=== PATIENT | female | born 1985 | race Caucasian/White ===

== ENCOUNTER 2018-12-02 08:58 | Emergency (ER) | payer SELFPAY ==
[2018-12-02] VITALS (23 sets, daily range): BP systolic 140–172; BP diastolic 80–116; PULSE 67–104; RESP 15–26; TEMP 36.5–36.7; O2SAT 97–100
--- NOTE | 2018-12-02 09:09 | ED.GENADUL_ITS ---
Discharge Plan Disposition Patient Disposition: HOME Condition: Stable Discharge Details Chief Complaint: Dizzy/Sync Clinical Impression: Seizure, HTN (hypertension) Primary Care Provider: Keshav Dean ED Provider: Chetna Vickers Home Meds and New Rx's Prescriptions: New levetiracetam [Keppra] 500 mg tablet 500 mg PO BID Qty: 60 RF: 0 Discontinued topiramate [Topamax] 200 mg Tablet 200 mg PO BID RF: 0 Discharge Instructions Instructions: Levetiracetam (By mouth), Hypertension (ED), Recurrent Seizures in Adults (ED) Additional Instructions: Please return immediately to the emergency department if you develop any new or worsening symptoms or if you become otherwise concerned. It is extremely important that you make an appointment to be seen as soon as possible by both your primary care doctor and also by a neurologist. Referrals: Keshav Dean [Primary Care Provider] - Marry Lacey MD [ [facility] ST[facility]FF PHYSICIAN] - Discharge Data Discharge Date/Time-TO BE ENTERED AT DEPARTURE: 12/02/18 11:20 Medical Decision Making Sofía Louis is a 3-year-old woman with a history of seizure disorder prescribed Topamax but has not been taking this medication for several months who presented to the emergency department with abrupt loss of consciousness while standing in a kitchen at work this morning, no complaints at this time. On exam patient is well and nontoxic appearing. She is somewhat slow to respond to questions but has an otherwise normal neurologic exam. Benign cardiopulmonary exam. Episode most consistent with seizure, possible metabolic/lyte derangement, possible head trauma. Do not suspect syncopal episode/cardiopulmonary etiology, sepsis, meningitis, other acute emergent life- threatening process. Plan for screening EKG, screening labs, CT head. We will continue to monitor. Patient's mother now present at bedside. Patient refusing CT head, she states that she has no headache, now feels very well and at baseline. Has no complaints. Patient's mother confirms that patient is at baseline. Patient is now responding in normal fashion, continues to have a benign exam. Given return to baseline mental status, normal exam, patient asymptomatic plan to discontinue CT head. Labs nondiagnostic, test negative per nursing, patient reports that she is currently having her period. I discussed patient with Dr. Van Straten, who recommended patient either restart Topamax at 50 mg twice daily or start Keppra at 500 mg twice daily if she has not previously been on this medication before. Patient states that she has not been on Keppra in the past, and she elects to begin Keppra secondary to side effects from Topamax. Patient noted to be hypertensive in the emergency department and asymptomatic, she notes that she has not had a history of hypertension in the past. Had a lengthy discussion with patient regarding return to emergency department precautions, importance of outpatient follow-up with PCP and with neurologist, no driving/swimming unless cleared to do so by neurology, and home care. Patient was discharged home with clear plan for outpatient follow-up. Patient verbalized understanding of the plan was amenable. All questions were answered. Medical Records Medical records reviewed: Yes I reviewed the patient's medical records. Lab Data Lab results reviewed: Yes I reviewed the patient's lab results. Laboratory Tests Range/Units 12/02/18 12/02/18 12/02/18 09:35 09:55 09:55 WBC (4.4-10.8) k/cumm 9.18 RBC (4.00-5.20) m/cumm 4.56 Hgb (12.0-15.5) g/dL 12.9 Hct (36.0-46.0) % 38.9 MCV (80-95) fL 85.3 MCH (27.0-33.0) pg 28.3 MCHC (32.0-36.0) g/dL 33.2 RDW (11.7-14.6) % 12.9 Plt Count (130-400) x1000/uL 289 MPV (8.0-11.0) fL 10.0 Immature Gran % 0.2 Neutrophils % 75.7 Lymphocytes % 15.4 Monocytes % 7.0 Eosinophils % 1.4 Basophils % 0.3 Absolute Neutrophils (1.2-6.7) k/cumm 6.95 H Absolute Lymphocytes (1.2-3.4) k/cumm 1.41 Absolute Monocytes (0.11-0.7) k/cumm 0.64 Absolute Eosinophils (0.0-0.7) k/cumm 0.13 Absolute Basophils (0.0-0.2) k/cumm 0.03 Sodium (136-145) mmol/L 142 Potassium (3.5-5.1) mmol/L 3.6 Chloride (98-107) mmol/L 104 Carbon Dioxide (21.0-32.0) mmol/L 28.2 Anion Gap (3-11) mmol/L 9.8 BUN (7-18) mg/dL 12 Creatinine (0.55-1.02) mg/dL 0.86 Estimated GFR/1.73 m2 (mL/min/1.73m2) >= 60.00 Glucose (70-100) mg/dL 107 H Calcium (8.5-10.1) mg/dL 8.3 L Total Bilirubin (0.2-1.0) mg/dL 0.6 AST (15-37) U/L 17 ALT (12-78) U/L 31 Alkaline Phosphatase (46-116) U/L 52 Total Protein (6.4-8.2) g/dL 7.0 Albumin (3.4-5.0) g/dL 3.6 Urine Color (Yellow) Yellow Urine Clarity Clear Urine pH (5-8) 7.0 Ur Specific [place] (1.005-1.025) 1.025 Urine Protein (Negative) mg/dL 100 H Urine Ketones (Negative) mg/dL Negative Urine Blood (Negative) Trace-intact H Urine Nitrite (Negative) Negative Urine Bilirubin (Negative) Negative Urine Urobilinogen (Up TO 0.2) EU/dL 0.2 Ur Leukocyte Esterase (Negative) Negative Urine RBC (0-2) 5-10 H Urine WBC (0-5) HPF 0-2 Ur Epithelial Cells (Negative) HPF Few Urine Crystals (Negative) HPF Few amorphous Urine Bacteria (Negative) HPF Rare Urine Casts (Negative) LPF 0-2 coarse granular Urine Mucus (Negative) Trace Ur Culture Indicated? No Urine Glucose (Negative) mg/dL Negative ECG Data Attestation: I personally reviewed and interpreted this ECG (s) as follows: Interpretation: EKG shows sinus rhythm at 95, normal axis, no acute ischemic changes, nondiagnostic EKG HPI General Mode of arrival: EMS . Date/Time Provider Initiated Documentation: 12/02/18 09:05 . Limitations to Documentation: altered mental status . Information obtained by: patient, EMS, RN notes reviewed and old records reviewed . HPI Narrative: Sofía Louis is a 33-year-old woman with history of seizure disorder presenting to the emergency department with abrupt loss of consciousness. Per EMS, patient was at work as usual in the cafeteria, when her coworkers saw her fall to the floor. They reported to EMS that patient seemed stiff and had some slight shaking. Episode of unconsciousness lasted less than 1 minute. When consciousness returned, EMS reported that patient seen confused and mildly combative. EMS reports that confusion had improved somewhat upon arrival but was still persistent. Patient reports that she does not remember anything after going to work as usual this morning. She denies any complaint other than some pain in her tongue, which she believes is from biting her tongue. Patient reports that she is supposed to be taking 200 mg of Topamax twice daily, but has not taken this medication for several months because she reports that it makes her feel tired. Patient reports that her last seizure was around [place] of this year. She reports that she typically has 3-4 seizures per year. She denies any recent illness, recent travel. She reports that she has been eating and drinking as usual. Denies alcohol or drug use. Related Data Home Medications Medication Instructions Recorded Confirmed levetiracetam [Keppra] 500 mg PO BID #60 tab 12/02/18 Previous Rx's Medication Instructions Recorded levetiracetam [Keppra] 500 mg PO BID #60 tab 12/02/18 Allergies Allergy/AdvReac Type Severity Reaction Status Date / Time Penicillins Allergy Severe Anaphylaxsi Unverified 12/02/18 09:17 s Review of Systems Review of Systems Constitutional: denies fevers Eyes: denies eye pain ENT: denies facial pain, dental pain, sore throat, reports tongue pain Cardiovascular: denies chest pain Respiratory: denies SOB, cough GI: denies abdominal pain, vomiting, diarrhea : denies flank pain MSK: denies back pain, neck pain, arthralgias, myalgias Skin: denies rash Neuro: denies headaches, numbness, weakness [facility] Social History Smoking/Tobacco Use Status: Current every day Drug use: Daily Substance use type: marijuana Do you feel safe at home: Yes Do you feel safe in your relationship?: Yes Exam Narrative Exam Narrative: Constitutional: well and [id number], pleasant, somewhat slow to respond but otherwise conversing normally HENT: head atraumatic/normocephalic/normal inspection, mucous membranes moist, small superficial laceration to distal aspect of the tongue, bleeding controlled Eyes: conjunctiva normal, sclera normal, pupils 3mm b/l, ocular movements intact Neck: no stridor, normal ROM, trachea midline Chest: normal inspection Resp: normal work of breathing, LCTAB Cardio: normal rate, normal rhythm, no murmur appreciated GI: abdomen soft, non-tender, non-distended Back: normal inspection, no rash Skin: warm, dry, normal color, no rash Neuro: alert, somewhat slow to respond and does not recall earlier events of the day, oriented x3, grossly non-focal, normal tone Ext: no edema, posterior calf tenderness to palpation Psych: normal mood, normal affect
[2018-12-02 09:42] LABS: Bilirubin Negative (Negative); Blood Trace-intact (Negative); Clarity Clear; Glucose Negative (Negative); Ketones Negative (Negative); Leukocyte Esterase Negative (Negative); Nitrite Negative (Negative); Specific Gravity 1.025 (1.005-1.025); Urobilinogen 0.2 EU/dL (Up TO 0.2)
[2018-12-02 09:54] LABS: Epithelial Cells Few HPF (Negative); WBC 0-2 HPF (0-5)
[2018-12-02 09:55] LABS: Bacteria Rare HPF (Negative); C & S Indicated? No; Casts 0-2 Coarse Granular LPF (Negative); Crystals Few Amorphous HPF (Negative); Mucus Trace (Negative)
[2018-12-02 10:03] LABS: Abs Immature Grans 0.02 k/cumm (0.0-0.09); Absolute Basophil Count 0.03 k/cumm (0.0-0.2); Absolute Eosinophil Count 0.13 k/cumm (0.0-0.7); Absolute Lymphocyte Count 1.41 k/cumm (1.2-3.4); Absolute Monocyte Count 0.64 k/cumm (0.11-0.7); Absolute Neutrophil Count 6.95 k/cumm (1.2-6.7); Basophils % 0.3; Eosinophils % 1.4; HCT 38.9 % (36.0-46.0); HGB 12.9 g/dL (12.0-15.5); Immature Grans % 0.2; Lymphocytes % 15.4; Mean Corp. HGB Concentration 33.2 g/dL (32.0-36.0); Mean Corpuscular Hemoglobin 28.3 pg (27.0-33.0); Mean Corpuscular Volume 85.3 fL (80-95); Neutrophils % 75.7; Platelet Count 289 x1000/uL (130-400); RBC 4.56 m/cumm (4.00-5.20); RBC Distribution Width 12.9 % (11.7-14.6); White Blood Cell Count 9.18 k/cumm (4.4-10.8)
[2018-12-02 10:14] LABS: ALT 31 U/L (12-78); AST 17 U/L (15-37); Albumin 3.6 g/dL (3.4-5.0); Alkaline Phosphatase 52 U/L (46-116); Anion Gap 9.8 mmol/L (3-11); BUN 12 mg/dL (7-18); Bilirubin, Total 0.6 mg/dL (0.2-1.0); CO2 28.2 mmol/L (21.0-32.0); CREATININE 0.86 mg/dL (0.55-1.02); Calcium 8.3 mg/dL (8.5-10.1); Chloride 104 mmol/L (98-107); Glucose 107 mg/dL (70-100); Potassium 3.6 mmol/L (3.5-5.1); Sodium 142 mmol/L (136-145)
[2018-12-02] MEDS: levETIRAcetam 250 MG TAB 500 MG PO (11:14)
--- NOTE | 2018-12-02 11:38 | NUR.NOTE ---
Nursing Note: 0950--pt declines a head CT--stating I feel normal now. I know it was a seizure because I haven't been taking my meds and I don't have insurance--Dr Vickers Notified.
== END 2018-12-02 11:20 | disposition home or self-care (01) ==
PROVIDERS: Emergency Provider Student in an Organized Health Care Education/Training Program; PCP Family Medicine
DX: R56.9 Unspecified convulsions (principal); I10 Essential (primary) hypertension
CPT/HCPCS: 36415; 80053; 93005; 99285; 81003; 81015; 85025; 93010

== ENCOUNTER 2019-08-13 11:50 | Emergency (ER) | payer SELFPAY ==
[2019-08-13 11:12] VITALS: BP 163/107; PULSE 74; RESP 20; TEMP 36.6; O2SAT 100
[2019-08-13] MEDS: Normal Saline 1,000 ML 1000 ML IV (12:04)
[2019-08-13] MEDS: HYDROmorphone 2 MG/ML VIAL 1 MG IVP ×2 (12:04→15:07)
[2019-08-13 12:06] LABS: Abs Immature Grans 0.02 k/cumm (0.0-0.09); Absolute Basophil Count 0.02 k/cumm (0.0-0.2); Absolute Monocyte Count 0.29 k/cumm (0.11-0.7); Absolute Neutrophil Count 9.86 k/cumm (1.2-6.7); Basophils % 0.2; HCT 40.2 % (36.0-46.0); HGB 13.2 g/dL (12.0-15.5); Immature Grans % 0.2 %; Lymphocytes % 6.4; Mean Corp. HGB Concentration 32.8 g/dL (32.0-36.0); Mean Corpuscular Hemoglobin 27.9 pg (27.0-33.0); Mean Platelet Volume 10.8 fL (8.0-11.0); Monocytes % 2.7; Neutrophils % 90.5; Platelet Count 380 x1000/uL (130-400); RBC 4.73 m/cumm (4.00-5.20); RBC Distribution Width 13.3 % (11.7-14.6); White Blood Cell Count 10.89 k/cumm (4.4-10.8)
[2019-08-13 12:19] LABS: ALT 160 U/L (14-59); AST 70 U/L (15-37); Albumin 3.9 g/dL (3.4-5.0); Alkaline Phosphatase 203 U/L (46-116); Anion Gap 12.6 mmol/L (3-11); BUN 16 mg/dL (7-18); Bilirubin, Total 8.1 mg/dL (0.2-1.0); CO2 26.4 mmol/L (21.0-32.0); CREATININE 0.67 mg/dL (0.55-1.02); Calcium 9.6 mg/dL (8.5-10.1); Chloride 101 mmol/L (98-107); Glucose 212 mg/dL (74-106); Potassium 3.4 mmol/L (3.5-5.1); Sodium 140 mmol/L (136-145); Total Protein 7.4 g/dL (6.4-8.2)
--- NOTE | 2019-08-13 13:13 | W.ED.GENAD ---
Discharge Plan Discharge Details Chief Complaint: GenMedical Primary Care Provider: None,None ED Provider: Saad Vickers Home Meds and New Rx's Prescriptions: No Action No Known Home Meds RF: 0 Discharge Data Discharge Date/Time-TO BE ENTERED AT DEPARTURE: 08/13/19 19:18 Medical Decision Making <Rafal Keller MD - Last Filed: 08/20/19 09:08> 34-year-old woman with a past medical history which includes seizures. Presents with acute worsening abdominal pain localized to her epigastrium and right upper quadrant. Exam on arrival significant for severe discomfort, dry mucosa and abdominal tenderness as described above. Clinical improved after receiving IV crystalloid, IV emetics, and IV analgesia. Labs concerning for gallstone pancreatitis with ultrasound diagnostic contacted [facility] for transfer to their facility for expectant management including an ERCP. Care transferred to Dr. Vickers with [facility] response to request for transfer pending. Multiple re-evaluations prior to transfer care with patient remaining stable. Medical Records Medical records reviewed: Yes I reviewed the patient's medical records. Imaging Data Radiologic Study: Imaging: Ultrasound My impression: Cholelithiasis. Borderline gallbladder wall thickening. Positive sonographic Crabtree sign. Dilated common bile duct and common hepatic duct. No obstructing stone is visible. Reviewed independently contemporaneously spine myself. Radiologist's impression: Same Lab Data Lab results reviewed: Yes I reviewed the patient's lab results. ECG Data Attestation: I personally reviewed and interpreted this ECG (s) as follows: Prior ECG tracings: available for review Interpretation: Sinus tachycardia. <Saad Vickers MD - Last Filed: 08/16/19 14:35> 16:15 -- Care signed out by Dr. Keller with plan to follow-up on conversation with [facility] finish specialist I spoke with [facility] gastroenterology on-call, I discussed ED presentation and course including all pertinent diagnostic treatment results including leukocytosis, elevated lipase, elevated LFTs, elevated bilirubin, platelets and results of ultrasound. The specialist recommends covering with antibiotics ciprofloxacin and Flagyl and admitting here to an [facility] hospitalist service for IV fluids and pain control. He did recommend checking an INR which I will send now. He also recommended surgical consult. I called and spoke with Dr. Lacy, on-call hospitalist, discussed ED presentation and course and all diagnostics, she will admit the patient. She will consult surgery. 16:34 --patient refusing to be admitted. I had a discussion with the patient about my diagnostic/treatment plan. Patient declines plan and wishes to leave against medical advise. I reiterated my concerns to the patient and explained the risks of leaving prior to completion of workup and treatment. I specifically emphasized the possibility of life-threatening or lifestyle modifying disease that would not be appropriately treated if they leave. Patient verbalized understanding of my concerns and the potential for life threatening or lifestyle modifying disease. Patient has capacity to make informed decision. I again explained my concerns and urged the patient to stay for treatment as outlined. Patient continued to refuse. I then discussed potential less ideal alternatives to diagnostic/treatment plan as outlines and patient refused. I recommended that the patient follow-up with primary care physician DK or return to the Emergency Department at any time for further treatment. Patient plans to go to [facility] ED on her own. I will send labs and record with patient. Patient is agreeable to receiving antibiotic here. Cipro 400mg IV and flagyl 500mg IV to be administered. Medical Records Medical records reviewed: Yes I reviewed the patient's medical records. Lab Data Lab results reviewed: Yes I reviewed the patient's lab results. HPI <Rafal Keller MD - Last Filed: 08/20/19 09:08> 34-year-old woman with unremarkable past medical history presents with acute onset of severe upper abdominal pain since early this morning. She denies a history of previous similar abdominal pain and notes her pain was sudden onset not triggered by any specific event. Since onset, she has had recurrent nonbilious emesis. Her pain is localized to her epigastrium and right upper quadrant. Is worse with positional change and direct palpation. She denies abdominal bloating, recent change in bowel or bladder habits. She denies fevers or chills. She has had no associated chest pain, dyspnea, palpitations, or atypical lower extremity pain or swelling. General Date/Time Provider Initiated Documentation: 08/13/19 12:58. Related Data Home Medications Medication Instructions Recorded Confirmed Unknown [No Known Home Meds] 08/13/19 08/13/19 Allergies Allergy/AdvReac Type Severity Reaction Status Date / Time Penicillins Allergy Severe Anaphylaxsi Unverified 08/13/19 11:17 s General Stated Complaint: GenMedical LAUREN: 3 <Saad Vickers MD - Last Filed: 08/16/19 14:35> 34-year-old woman with unremarkable past medical history presents with acute onset of severe upper abdominal pain since early this morning. She denies a history of previous similar abdominal pain and notes her pain was sudden onset not triggered by any specific event. Since onset, she has had recurrent nonbilious emesis. Her pain is localized to her epigastrium and right upper quadrant. Is worse with positional change and direct palpation. She denies abdominal bloating, recent change in bowel or bladder habits. She denies fevers or chills. She has had no associated chest pain, dyspnea, palpitations, or atypical lower extremity pain or swelling. Review of Systems <Rafal Keller MD - Last Filed: 08/20/19 09:08> All systems reviewed & are unremarkable except as noted in HPI and below PFSH <Rafal Keller MD - Last Filed: 08/20/19 09:08> Social History Smoking/Tobacco Use Status: Current every day Tobacco Type: cigarettes Alcohol Intake: current Alcohol Intake frequency: a few times a week Drug use: Daily Substance use type: marijuana Do you feel safe at home: Yes Do you feel safe in your relationship?: Yes Exam <Rafal Keller MD - Last Filed: 08/20/19 09:08> Narrative Exam Narrative: Nursing note and vital signs have been reviewed and noted. GENERAL: alert, active, in significant discomfort, well -hydrated, well-nourished HEENT: atraumatic/normocephalic, PERRLA, EOMI, conjunctiva clear, external ears/canals normal, nasal mucosa normal NECK: supple, full range of motion, no mass, normal lymphadenopathy, no thyromegaly CARDIOVASCULAR: RRR, no murmurs, nl pulses, no edema PULMONARY: nl effort, no audible wheezing or stridor, nl breath sounds with no focal deficit. no chest wall tenderness ABDOMEN: soft, epigastric and right upper quadrant tenderness with guarding. No rebound or peritonitis., non-distended, no mass, no organomegaly EXTREMITY: normal muscle tone, all joints with FROM, no deformity or tenderness SKIN: no exanthem appreciated NEURO: gross motor exam normal, normal stance and gait PSYCH: alert and oriented, Course <Rafal Keller MD - Last Filed: 08/20/19 09:08> Vital Signs Vital signs: Vital Signs Temperature 97.9 F 08/13/19 11:12 Pulse 74 08/13/19 11:12 Respiratory Rate 20 08/13/19 11:12 Blood Pressure 163/107 H 08/13/19 11:12 Pulse Oximetry 100 08/13/19 11:12 Temperature 97.9 F 08/13/19 11:12 Temperature Source Oral 08/13/19 11:12 Pulse 74 08/13/19 11:12 Respiratory Rate 08/13/19 11:12 Respiratory Effort Labored 08/13/19 12:05 Respiratory Depth Normal 08/13/19 12:05 Respiratory Pattern Normal 08/13/19 12:05 Blood Pressure 163/107 H 08/13/19 11:12 Blood Pressure Position Supine 08/13/19 11:12 Pulse Oximetry 100 08/13/19 11:12 Oxygen Delivery Method Room Air 08/13/19 11:12 Oxygen Flow Rate 0 08/13/19 11:12 Pain Level 7 08/13/19 11:12 Lab/Test Results Lab/Test Results: Laboratory Tests Range/Units 08/13/19 08/13/19 11:59 11:59 WBC (4.4-10.8) k/cumm 10.89 H RBC (4.00-5.20) m/cumm 4.73 Hgb (12.0-15.5) g/dL 13.2 Hct (36.0-46.0) % 40.2 MCV (80-95) fL 85.0 MCH (27.0-33.0) pg 27.9 MCHC (32.0-36.0) g/dL 32.8 RDW (11.7-14.6) % 13.3 Plt Count (130-400) x1000/uL 380 MPV (8.0-11.0) fL 10.8 Immature Gran % % 0.2 Neutrophils % 90.5 Lymphocytes % 6.4 Monocytes % 2.7 Eosinophils % 0.0 Basophils % 0.2 Absolute Neutrophils (1.2-6.7) k/cumm 9.86 H Absolute Lymphocytes (1.2-3.4) k/cumm 0.70 L Absolute Monocytes (0.11-0.7) k/cumm 0.29 Absolute Eosinophils (0.0-0.7) k/cumm 0.00 Absolute Basophils (0.0-0.2) k/cumm 0.02 Sodium (136-145) mmol/L 140 Potassium (3.5-5.1) mmol/L 3.4 L Chloride (98-107) mmol/L 101 Carbon Dioxide (21.0-32.0) mmol/L 26.4 Anion Gap (3-11) mmol/L 12.6 H BUN (7-18) mg/dL 16 Creatinine (0.55-1.02) mg/dL 0.67 Estimated GFR/1.73 m2 (mL/min/1.73m2) >= 60.00 Glucose (74-106) mg/dL 212 H Calcium (8.5-10.1) mg/dL 9.6 Total Bilirubin (0.2-1.0) mg/dL 8.1 H AST (15-37) U/L 70 H ALT (14-59) U/L 160 H Alkaline Phosphatase (46-116) U/L 203 H Total Protein (6.4-8.2) g/dL 7.4 Albumin (3.4-5.0) g/dL 3.9 Sign Out <Rafal Keller MD - Last Filed: 08/20/19 09:08> Sign Out Data: Sign Out Comment: follow-up discussion with [facility] GI Last updated by Rafal Keller MD at 08/13/19 16:15
[2019-08-13] MEDS: HYDROmorphone 2 MG/ML VIAL 0.5 MG IM (13:14)
--- NOTE | 2019-08-13 13:31 | DI.US_ITS ---
EXAM: US ABDOMEN CLINICAL HISTORY: Epigastric/right upper quadrant tenderness with el TECHNIQUE: Ultrasound performed using standard protocol. COMPARISON: No exams were available for comparison FINDINGS: The liver measures 13.6 cm in length. There is mildly increased liver echogenicity consistent with f atty infiltration. No focal liver lesions are seen. Multiple stones are noted in the gallbladder. There is borderline gallbladder wall thickening. No pericholecystic fluid or abnormal gallbladder di stention is seen. There dilatation of the common bile duct to 9 millimeters. No obstructing common duct stone is seen. Common hepatic duct is also dilated. The tail of the pancreas was unable to be visualized. No ascites is seen. The spleen is at the upper limits of normal in size. The kidneys a nd aorta are unremarkable. IMPRESSION: Cholelithiasis. Borderline gallbladder wall thickening. Positive sonographic Crabtree sign. Dilated common bile duct and common hepatic duct. No obstructing stone is visible.
[2019-08-13 13:35] LABS: Lipase > 15000 U/L (73-393)
[2019-08-13] MEDS: Metoclopramide 10 MG/2 ML VIAL IVP (15:06)
[2019-08-13 15:21] VITALS: BP 187/104; PULSE 96; RESP 15; TEMP 36.7; O2SAT 98
[2019-08-13 16:14] VITALS: BP 160/91; PULSE 90; RESP 20; O2SAT 99
[2019-08-13] MEDS: Lactated Ringers 1,000 ML 1000 ML IV (16:15)
--- NOTE | 2019-08-13 16:34 | W.PM.PROGNOT ---
Date of Service Date of service: 08/13/19 Time of Service: 16:34 Subjective Subjective Interval history since last seen: Hospitalist service was asked and agreed to admit the patient for acute gallstone pancreatitis, cholangitis, cholecystitis. Orders were placed prior to seeing the patient; however, the patient decided to leave AMA from the ED prior to hospitalist evaluation being possible almost immediately after the call to admit. Objective Objective Clinical Data: Abnormal lab results 08/13/19 08/13/19 08/13/19 Range/Units 11:59 11:59 11:59 WBC 10.89 H (4.4-10.8) k/cumm Absolute Neutrophils 9.86 H (1.2-6.7) k/cumm Absolute Lymphocytes 0.70 L (1.2-3.4) k/cumm Potassium 3.4 L (3.5-5.1) mmol/L Anion Gap 12.6 H (3-11) mmol/L Glucose 212 H (74-106) mg/dL Total Bilirubin 8.1 H (0.2-1.0) mg/dL AST 70 H (15-37) U/L ALT 160 H (14-59) U/L Alkaline Phosphatase 203 H (46-116) U/L Lipase > 21854 H (73-393) U/L Vital Signs Temperature 36.7 C 08/13/19 15:21 Temperature Source Skin 08/13/19 15:21 Pulse 90 08/13/19 16:14 Pulse Rhythm Regular 08/13/19 15:21 Pulse Strength Normal 08/13/19 15:21 Respiratory Rate 20 08/13/19 16:14 Respiratory Effort 08/13/19 15:21 Respiratory Depth Normal 08/13/19 15:21 Respiratory Pattern Normal 08/13/19 15:21 Blood Pressure 160/91 H 08/13/19 16:14 Blood Pressure Mean 131 08/13/19 15:21 Blood Pressure Position Sitting 08/13/19 15:21 Pulse Oximetry 99 08/13/19 16:14 Oxygen Delivery Method Room Air 08/13/19 16:14 Oxygen Flow Rate 0 08/13/19 16:14 Pain Level 10 08/13/19 16:14 Intake & Output 08/12/19 08/13/19 08/13/19 23:59 11:59 23:59 Intake Total 1000 / 1000 Balance 1000 / 1000 Weight 142.882 kg Intake: IV 999 / 999 Laboratory Results WBC 10.89 k/cumm (4.4-10.8) H 08/13/19 11:59 RBC 4.73 m/cumm (4.00-5.20) 08/13/19 11:59 Hgb 13.2 g/dL (12.0-15.5) 08/13/19 11:59 Hct 40.2 % (36.0-46.0) 08/13/19 11:59 MCV 85.0 fL (80-95) 08/13/19 11:59 MCH 27.9 pg (27.0-33.0) 08/13/19 11:59 MCHC 32.8 g/dL (32.0-36.0) 08/13/19 11:59 RDW 13.3 % (11.7-14.6) 08/13/19 11:59 Plt Count 380 x1000/uL (130-400) 08/13/19 11:59 MPV 10.8 fL (8.0-11.0) 08/13/19 11:59 Immature Gran % 0.2 % 08/13/19 11:59 Neutrophils % 90.5 08/13/19 11:59 Lymphocytes % 6.4 08/13/19 11:59 Monocytes % 2.7 08/13/19 11:59 Eosinophils % 0.0 08/13/19 11:59 Basophils % 0.2 08/13/19 11:59 Absolute Neutrophils 9.86 k/cumm (1.2-6.7) H 08/13/19 11:59 Absolute Lymphocytes 0.70 k/cumm (1.2-3.4) L 08/13/19 11:59 Absolute Monocytes 0.29 k/cumm (0.11-0.7) 08/13/19 11:59 Absolute Eosinophils 0.00 k/cumm (0.0-0.7) 08/13/19 11:59 Absolute Basophils 0.02 k/cumm (0.0-0.2) 08/13/19 11:59 Sodium 140 mmol/L (136-145) 08/13/19 11:59 Potassium 3.4 mmol/L (3.5-5.1) L 08/13/19 11:59 Chloride 101 mmol/L (98-107) 08/13/19 11:59 Carbon Dioxide 26.4 mmol/L (21.0-32.0) 08/13/19 11:59 Anion Gap 12.6 mmol/L (3-11) H 08/13/19 11:59 BUN 16 mg/dL (7-18) 08/13/19 11:59 Creatinine 0.67 mg/dL (0.55-1.02) 08/13/19 11:59 Estimated GFR/1.73 m2 >= 60.00 (mL/min/1.73m2) 08/13/19 11:59 Glucose 212 mg/dL (74-106) H 08/13/19 11:59 Calcium 9.6 mg/dL (8.5-10.1) 08/13/19 11:59 Total Bilirubin 8.1 mg/dL (0.2-1.0) H 08/13/19 11:59 AST 70 U/L (15-37) H 08/13/19 11:59 ALT 160 U/L (14-59) H 08/13/19 11:59 Alkaline Phosphatase 203 U/L (46-116) H 08/13/19 11:59 Total Protein 7.4 g/dL (6.4-8.2) 08/13/19 11:59 Albumin 3.9 g/dL (3.4-5.0) 08/13/19 11:59 Lipase > 77109 U/L (73-393) H 08/13/19 11:59
[2019-08-13 16:45] LABS: Prothrombin Time 10.1 sec (9.3-11.0)
[2019-08-13] MEDS: CIPROFLOXACIN 400 MG/200 ML BAG 200 MG IVPB (16:47)
[2019-08-13 17:00] VITALS: BP 163/97; PULSE 91; RESP 16; TEMP 36.8; O2SAT 97
[2019-08-13] MEDS: oxyCODONE 5 MG TAB PO (17:21)
[2019-08-13] MEDS: metroNIDAZOLE 500 MG/100 ML BAG 100 MG IVPB (17:55)
[2019-08-13] MEDS: fentaNYL 100 MCG/2 ML VIAL 50 MCG IVP (17:55)
[2019-08-13] MEDS: Ondansetron 4 MG/2 ML VIAL IVP (18:01)
[2019-08-13 19:07] LABS: Triglyceride 245 mg/dL (<150)
[2019-08-13 19:08] LABS: Hemoglobin A1C 5.8 % (3.8-5.6)
[2019-08-13 19:11] VITALS: BP 166/103; PULSE 92; RESP 15; TEMP 36.8; O2SAT 99
== END 2019-08-13 19:18 ==
PROVIDERS: Emergency Medicine; Emergency Provider Student in an Organized Health Care Education/Training Program
DX: K80.20 Calculus of gallbladder without cholecystitis without obstruction (principal); R11.2 Nausea with vomiting, unspecified; R10.11 Right upper quadrant pain; K83.8 Other specified diseases of biliary tract; Z53.29 Procedure and treatment not carried out because of patient's decision for other reasons
CPT/HCPCS: 36415; 80053; 81025; 83690; 96361; 96365; 96367; 96372; 96375; 96376; 99284; NC; 76700; 83036; 84478; 85025; 85610; 99285; J0744; J2405; J2765; J3010

== ENCOUNTER 2021-03-21 07:22 | Emergency (ER) | payer OTHER, SELFPAY ==
[2021-03-21] VITALS (18 sets, daily range): BP systolic 130–159; BP diastolic 72–113; PULSE 102–139; RESP 14–36; TEMP 36.8; O2SAT 96–100
--- NOTE | 2021-03-21 07:45 | DI.RAD_ITS ---
Exam(s) XR CHEST 2V PA LATERAL EXAM: XR CHEST 2V PA LATERAL CLINICAL HISTORY: Seizure, Altered Mental status. TECHNIQUE: 2D digital imaging was performed. COMPARISON: No exams were available for comparison FINDINGS: Heart size is normal. The mediastinum is not widened. Lungs are clear. No infiltrates nor pleural effusions. IMPRESSION: No acute pulmonary findings. DATA REPOSITORY: RADIATION DOSE DELIVERED:
--- NOTE | 2021-03-21 07:45 | DI.CT_ITS ---
Exam(s) CT HEAD WO EXAM: CT HEAD WO CLINICAL HISTORY: Seizure. TECHNIQUE: Imaging Protocol: Axial computed tomography images with coronal and sagittal reformatted images were created and reviewed COMPARISON: CT HEAD FACIALS WO from 12/14/2015 FINDINGS: There are no skull fractures nor fluid in the visualized paranasal sinuses. There is no evidence of intracranial hemorrhage, mass effect, or shift of midline structures. There are no extra-axial fluid collections. The ventricles are not enlarged or shifted and there is no blo od within the ventricular system nor within the basal cisterns. IMPRESSION: No acute intracranial findings on this noninfused CT scan of the brain. RADIATION DOSE DELIVERED: 784.03mGy.cm Total DLP DATA REPOSITORY: All CT scans at this facility are submitted to the National Radiology Data Registry (NRDR) Dose Index Registry (DIR) with the [employer] ([employer]). RADIATION OPTIMIZATION: All CT scans at this facility use at least one of these dose optimization te chniques: automated exposure control; mA and/or kV adjustment per patient size (includes targeted exa ms where dose is matched to clinical indication); or iterative reconstruction.
--- NOTE | 2021-03-21 08:01 | ED.GENADUL_ITS ---
Discharge Plan Disposition Patient Disposition: HOME Condition: Stable Discharge Details Clinical Impression: Seizure Primary Care Provider: None,None ED Provider: Adri Ortiz Home Meds and New Rx's Prescriptions: No Action No Known Home Meds RF: 0 Discharge Instructions Instructions: Recurrent Seizures in Adults (ED) Additional Instructions: Follow up with primary care provider in 3-5 days. Return to ED sooner if any worsening or concerns. Increase oral fluids. You are placed on a list for neurology follow-up. Stand Alone Forms: Work Release Referrals: Marry Lacey MD [ [facility] STAFF PHYSICIAN] - Medical Decision Making 35-year-old female presents to ER via EMS with chief complaint of altered mental status and possible seizure. She last remembers walking to work sitting on a bench and then she reports she woke up in an ambulance. Per EMS she was combative and altered mental status on scene. Patient does have a history of seizures she reports her last seizure was approximately 1-1/2 years ago. She is not currently taking any antiseizure medications. She denies any drugs or alcohol or marijuana. She denies any recent trauma she does report a slight headache and being tired. She was given 10 mg of Valium IV prior to arrival by EMS. She denies any fever, nausea vomiting, diarrhea no abdominal pain. She denies any blurry vision. She does not currently have a primary care provider. Work-up ordered including CBC, CMP, EtOH, urinalysis and urine drug screen. CBC shows slightly elevated white blood cell count 12.40, absolute neutrophils 8.61, sodium 139 potassium 3.3 glucose 197, calcium 8.4, TSH is less than 0.01 and free T4 is 1.72 ethyl alcohol is less than 3.0. EXAM: XR CHEST 2V PA LATERAL CLINICAL HISTORY: Seizure, Altered Mental status. TECHNIQUE: 2D digital imaging was performed. COMPARISON: No exams were available for comparison FINDINGS: Heart size is normal. The mediastinum is not widened. Lungs are clear. No infiltrates nor pleural effusions. IMPRESSION: No acute pulmonary findings. EXAM: CT HEAD WO CLINICAL HISTORY: Seizure. TECHNIQUE: Imaging Protocol: Axial computed tomography images with coronal and sagittal reformatted images were created and reviewed COMPARISON: CT HEAD FACIALS WO from 12/14/2015 FINDINGS: There are no skull fractures nor fluid in the visualized paranasal sinuses. There is no evidence of intracranial hemorrhage, mass effect, or shift of midline structures. There are no extra-axial fluid collections. The ventricles are not enlarged or shifted and there is no blood within the ventricular system nor within the basal cisterns. IMPRESSION: No acute intracranial findings on this noninfused CT scan of the brain. Discussed Keppra with patient and my recommendation to be placed back on that. Patient refused at this time, she states that she stopped taking the Keppra due to side effects. At this time CT head is pending. Expected disposition is discharge with referral for PCP and neurology follow-up. Medical Records Medical records reviewed: Yes I reviewed the patient's medical records. Medical records narrative: Records from [facility] reviewed last visit was November 2019. At that time patient was seen and admitted for a Rekha cystectomy patient's medications at that time included Ativan 0.5 mg, fluoxetine 20 mg, lisinopril 5 mg, Keppra 500 mg twice daily, and albuterol inhaler as needed. HPI General Mode of arrival: EMS . Date/Time Provider Initiated Documentation: 03/21/21 07:59 . Limitations to Documentation: no limitations . Information obtained by: patient and RN notes reviewed . HPI Narrative: 35-year-old female presents to ER via EMS with chief complaint of altered mental status and possible seizure. She last remembers walking to work sitting on a bench and then she reports she woke up in an ambulance. Per EMS she was combative and altered mental status on scene. Patient does have a history of seizures she reports her last seizure was approximately 1-1/2 years ago. She is not currently taking any antiseizure medications. She denies any drugs or alcohol or marijuana. She denies any recent trauma she does report a slight headache and being tired. She was given 10 mg of Valium IV prior to arrival by EMS. She denies any fever, nausea vomiting, diarrhea no abdominal pain. She denies any blurry vision. She does not currently have a primary care provider. Related Data Home Medications Medication Instructions Recorded Confirmed Unknown [No Known Home Meds] 08/13/19 03/21/21 Allergies Allergy/AdvReac Type Severity Reaction Status Date / Time Penicillins Allergy Severe Anaphylaxsi Unverified 03/21/21 07:34 s General Stated Complaint: Seizure LAUREN: 2 Review of Systems Narrative: Constitutional: Negative for weight loss, alert and oriented, well groomed, obese body habitus, appears comfortable. HEENT: Denies trauma, blurry vision, nasal discharge, sore throat, trouble swallowing. Chest: Denies chest pain, palpitations, irregular rhythm, hypertension. Respiratory: Denies Shortness of breath, cough, hemoptysis. GI: Denies abdominal pain, nausea, vomiting, diarrhea, constipation. : Denies dysuria, hematuria, flank pain, rectal bleeding. Neuro: Denies dizziness, blurry vision, weakness, or facial numbness. Positive altered mental status and possible seizure. Hematologic: Denies easy bruising, intolerance to heat or cold, hair loss. [facility] Social History Smoking/Tobacco Use Status: Current every day Tobacco Type: cigarettes Smoking risk assessment performed?: Yes Alcohol Intake: current Alcohol Intake frequency: a few times a week Drug use: Daily Substance use type: marijuana Do you feel safe at home: Yes Do you feel safe in your relationship?: Yes Exam Narrative Exam Narrative: Constitutional: Alert and oriented x3. Appears stated age. Obese body habitus. Head: Normocephalic, no signs of trauma. Eyes: Pupils PERRLA, Red reflex noted, EOM's intact. Eyelids symmetrical without lesions, discharge, or swelling. ENT: Bilateral TM's WNL, External ear normal to inspection, no mastoid TTP, swelling, or erythema, Nasal turbinates WNL, no nasal discharge. Normal dentition, Posterior pharynx WNL, no exudate. No intraoral trauma. Chest: Tachycardic at a rate of 120, Normal S1, S2, distal pulses intact. Resp: Lungs clear to auscultation bilaterally, no wheezes, rales, or rhonchi. Abdomen: Soft, nondistended nontender to palpation all 4 quadrants. Musculoskeletal: Unable to assess gait, 5/5 strength to all four extremities. Skin: No suspicious rashes or lesions. Capillary refill less than 2 sec. Neurologic: Cranial nerves II-XII intact. Alert and oriented x 3. DTR's intact. Hematologic/Lymphatic: No ecchymosis, no lymphadenopathy. Course Vital Signs Vital signs: Vital Signs Temperature 36.8 C 03/21/21 07:25 Pulse 130 H 03/21/21 07:25 Respiratory Rate 20 03/21/21 07:25 Blood Pressure 152/113 H 03/21/21 07:25 Pulse Oximetry 97 03/21/21 07:25 Temperature 36.8 C 03/21/21 07:25 Temperature Source Skin 03/21/21 07:25 Pulse 130 H 03/21/21 07:25 Respiratory Rate 20 03/21/21 07:25 Respiratory Effort Non-Labored 03/21/21 07:36 Respiratory Depth Normal 03/21/21 07:36 Respiratory Pattern Normal 03/21/21 07:36 Blood Pressure 152/113 H 03/21/21 07:25 Blood Pressure Position Sitting 03/21/21 07:25 Pulse Oximetry 97 03/21/21 07:25 Oxygen Delivery Method Room Air 03/21/21 07:25 Oxygen Flow Rate 0 03/21/21 07:25
[2021-03-21] MEDS: Normal Saline 1,000 ML 1000 ML IV (08:08)
[2021-03-21 08:11] LABS: Abs Immature Grans 0.06 10^3/uL (0.0-0.06); Absolute Basophil Count 0.04 10^3/uL (0.0-0.2); Basophils % 0.3; Eosinophils % 0.8; HCT 38.5 % (36.0-46.0); HGB 12.3 g/dL (11.2-15.7); Immature Grans % 0.5; Lymphocytes % 23.4; MCH 26.6 pg (27.0-33.0); MCHC 31.9 % (32.0-36.0); MCV 83.3 fL (80-95); MPV 10.4 fL (8.0-11.0); Monocytes % 5.6; Neutrophils % 69.4; Nucleated RBC 0 %; Platelet Count 341 10^3/uL (130-400); RBC 4.62 10^6/uL (3.93-5.22); RDW 12.7 % (11.7-14.6); RDW-SD 38.3 fL
[2021-03-21 08:18] LABS: Absolute Monocyte Count 0.69 10^3/uL (0.1-0.8); Absolute Neutrophil Count 8.61 10^3/uL (1.2-6.7)
[2021-03-21 08:35] LABS: ALT 40 U/L (14-59); AST 24 U/L (15-37); Albumin 3.7 g/dL (3.4-5.0); Alkaline Phosphatase 65 U/L (46-116); Anion Gap 14.4 mmol/L (3-11); BUN 18 mg/dL (7-18); Bilirubin, Total 0.9 mg/dL (0.2-1.0); CO2 20.6 mmol/L (21.0-32.0); Calcium 8.4 mg/dL (8.5-10.1); Chloride 104 mmol/L (98-107); Glucose 197 mg/dL (74-106); Potassium 3.3 mmol/L (3.5-5.1); Sodium 139 mmol/L (136-145)
[2021-03-21 08:36] LABS: ETHANOL BLOOD < 3.0 mg/dL (<3); TSH (W/Ref FT4) < 0.01 uIU/mL (0.36-3.74)
[2021-03-21 08:52] LABS: FREE T4 1.72 ng/dL (0.76-1.46)
== END 2021-03-21 09:56 | disposition home or self-care (01) ==
PROVIDERS: Emergency Provider Registered Nurse Emergency
DX: G40.909 Epilepsy, unspecified, not intractable, without status epilepticus (principal); R41.82 Altered mental status, unspecified; R00.0 Tachycardia, unspecified
CPT/HCPCS: 36415; 80053; 81025; 96360; 96361; 99284; 70450; 71046; 80320; 84439; 84443; 85025